=== PATIENT | female | born 1990 | race Asian ===

== ENCOUNTER 2017-03-17 08:52 | Inpatient (IN) | payer MEDICARE, MEDICAID ==
[~2017-03-17] VITALS: Ht 167.6 cm; Wt 97.1 kg
[2017-03-17 08:52] VITALS: BP 132/112
--- NOTE | 2017-03-17 09:21 | Emergency Room Report ---
History of Present Illness General Chief Complaint: General Complaint Source: Family Member Present Illness HPI Patient has advanced autism including bipolar disorder Patient had recently added medication And this morning mom describes was found to be likely seizure activity with postictal state Patient herself is not verbal with us However is awake and alert family reports that this time appears to be back to baseline mental status No reports of vomiting No reports of rash No reports of fever Patient had a shaking episode and has description of postictal state father was rubbing her arms and tried to give her oxygen Patient did become arousable Allergies: Coded Allergies: No Known Allergies (Unverified , 03/17/17) Patient History Past Medical History: see triage record Pertinent Family History: none Reviewed Nursing Documentation: PMH: Agreed, PSxH: Agreed Review of Systems All Other Systems: limited - Other than the ones mentioned in the history of present illness all others are reviewed however they do stay limited due to the patient's mental status Physical Exam Vital Signs Date Time Temp Pulse Resp B/P (MAP) Pulse Ox O2 Delivery O2 Flow Rate FiO2 03/17/17 08:39 97.9 97 18 140/98 98 Room Air Sp02 EP Interpretation: reviewed, normal General Appearance: well appearing, no apparent distress Head: normocephalic, atraumatic Eyes: bilateral eye PERRL, bilateral eye EOMI ENT: hearing grossly normal, normal pharynx, TMs + canals normal, uvula midline Neck: full range of motion, supple, no meningismus, no bony tend Respiratory: lungs clear, normal breath sounds, no rhonchi, no respiratory distress, no retraction, no accessory muscle use Cardiovascular #1: normal peripheral pulses, regular rate, rhythm, no edema, no gallop, no JVD, no murmur Gastrointestinal: normal bowel sounds, non tender, soft, no mass, no organomegaly, non-distended, no guarding, no hernia, no pulsatile mass, no rebound Genitourinary: no CVA tenderness Musculoskeletal: normal inspection Neurologic: oriented x3, responsive, salicylic acid blender III-XII nml as tested, motor strength/ tone normal, sensory intact Psychiatric: mood/affect normal Skin: normal color, no rash, warm/dry, palpation normal Lymphatic: normal inspection, no adenopathy Medical Decision Making Diagnostic Impression: Primary Impression: Hyponatremia Additional Impression: Seizure ER Course Multiple differentials considered Patient has complex requiring blood work and imaging Consideration for reaction to new medication is also made The patient's sodium is low raising the concern of seizures caused by hyponatremia Patient further hydrated with normal saline CT imaging does not show any acute pathology Given the patient's new onset and comorbidities patient admitted for further care Labs Test 03/17/17 09:40 03/17/17 10:45 03/18/17 07:25 White Blood Count 4.2 K/UL (4.8-10.8) 3.9 K/UL (4.8-10.8) Red Blood Count 3.73 M/UL (4.20-5.40) 3.61 M/UL (4.20-5.40) Hemoglobin 12.3 G/DL (12.0-16.0) 11.9 G/DL (12.0-16.0) Hematocrit 36.1 % (37.0-47.0) 35.6 % (37.0-47.0) Mean Corpuscular Volume 97 FL (80-99) 99 FL (80-99) Mean Corpuscular Hemoglobin 32.9 PG (27.0-31.0) 33.0 PG (27.0-31.0) Mean Corpuscular Hemoglobin Concent 34.0 G/DL (32.0-36.0) 33.5 G/DL (32.0-36.0) Red Cell Distribution Width 10.8 % (11.6-14.8) 11.4 % (11.6-14.8) Platelet Count 444 K/UL (150-450) 474 K/UL (150-450) Mean Platelet Volume 4.6 FL (6.5-10.1) 4.4 FL (6.5-10.1) Neutrophils (%) (Auto) 67.2 % (45.0-75.0) 60.2 % (45.0-75.0) Lymphocytes (%) (Auto) 22.2 % (20.0-45.0) 29.9 % (20.0-45.0) Monocytes (%) (Auto) 9.5 % (1.0-10.0) 8.7 % (1.0-10.0) Eosinophils (%) (Auto) 0.5 % (0.0-3.0) 0.6 % (0.0-3.0) Basophils (%) (Auto) 0.6 % (0.0-2.0) 0.7 % (0.0-2.0) Sodium Level 129 MMOL/L (136-145) 135 MMOL/L (136-145) Potassium Level 4.1 MMOL/L (3.5-5.1) 4.3 MMOL/L (3.5-5.1) Chloride Level 94 MMOL/L (98-107) 101 MMOL/L (98-107) Carbon Dioxide Level 30 MMOL/L (21-32) 29 MMOL/L (21-32) Anion Gap 6 mmol/L (5-15) 5 mmol/L (5-15) Blood Urea Nitrogen 7 mg/dL (7-18) 8 mg/dL (7-18) Creatinine 0.5 MG/DL (0.55-1.30) 0.4 MG/DL (0.55-1.30) Estimat Glomerular Filtration Rate > 60 mL/min (>60) > 60 mL/min (>60) Glucose Level 101 MG/DL (74-106) 86 MG/DL (74-106) Calcium Level 8.9 MG/DL (8.5-10.1) 9.0 MG/DL (8.5-10.1) Total Bilirubin 0.2 MG/DL (0.2-1.0) Aspartate Amino Transf (AST/SGOT) 17 U/L (15-37) Alanine Aminotransferase (ALT/SGPT) 21 U/L (12-78) Alkaline Phosphatase 97 U/L (46-116) Total Protein 7.4 G/DL (6.4-8.2) Albumin 3.8 G/DL (3.4-5.0) Globulin 3.6 g/dL Albumin/Globulin Ratio 1.1 (1.0-2.7) Lipase 97 U/L (73-393) Carbamazepine (Tegretol) Level 11.3 ug/mL (4.0-12.0) Urine Color Pale yellow Urine Appearance Clear Urine pH 8 (4.5-8.0) Urine Specific [place] 1.010 (1.005-1.035) Urine Protein Negative (NEGATIVE) Urine Glucose (UA) Negative (NEGATIVE) Urine Ketones Negative (NEGATIVE) Urine Occult Blood Negative (NEGATIVE) Urine Nitrite Negative (NEGATIVE) Urine Bilirubin Negative (NEGATIVE) Urine Urobilinogen Normal MG/DL (0.0-1.0) Urine Leukocyte Esterase Negative (NEGATIVE) Urine HCG, Qualitative Negative Vitamin B12 Level 527 PG/ML (193-986) Rhythm Strip Diag. Results EP Interpretation: yes Rate: 89 Rhythm: NSR, no PVC's, no ectopy CT/MRI/US Diagnostic Results CT/MRI/US Diagnostic Results : Impression CT head no acute disease Last Vital Signs Date Time Temp Pulse Resp B/P (MAP) Pulse Ox O2 Delivery O2 Flow Rate FiO2 03/17/17 08:39 97.9 97 18 140/98 98 Room Air Status: improved Disposition: ADMITTED INPATIENT Condition: Serious MANI ISSA D.O. Mar 17, 2017 09:21
--- NOTE | 2017-03-17 10:02 | Diagnostic Imaging Report ---
Indication: Seizures, altered mental status Technique: Continuous helical CT scanning of the head was performed without intravenous contrast material. Axial and coronal 5 mm sections were generated. Radiation dose was minimized using automated exposure control Dose: Total Dose Length Product - DLP 1921.[address] Dose Index - CTDIvol(s) 70.38,70.38 mGy. Comparison: Findings: The ventricular system is normal in size and configuration. There is no shift of midline structures. No abnormal extra-axial fluid collections are noted. There is no evidence of intracerebral bleeding. No other abnormal high or low density areas are noted within the brain. Intact calvarium. Visualized orbits and sinuses are unremarkable Impression: Normal CT scan of the head without contrast material. The CT scanner at [facility] is accredited by the [employer] and the scans are performed using protocols designed to limit radiation exposure to as low as reasonably achievable to attain images of sufficient resolution adequate for diagnostic evaluation.
[2017-03-17 10:05] LABS: BASOPHILS % (AUTO) 0.6 % (0.0-2.0); EOSINOPHILS % (AUTO) 0.5 % (0.0-3.0); HEMATOCRIT 36.1 % (37.0-47.0); HEMOGLOBIN 12.3 G/DL (12.0-16.0); LYMPHOCYTES % (AUTO) 22.2 % (20.0-45.0); MEAN CORPUSCULAR VOLUME 97 FL (80-99); MONOCYTES % (AUTO) 9.5 % (1.0-10.0); NEUTROPHILS % (AUTO) 67.2 % (45.0-75.0); PLATELET COUNT 444 K/UL (150-450); RED BLOOD COUNT 3.73 M/UL (4.20-5.40); RED CELL DISTRIBUTION WIDTH 10.8 % (11.6-14.8); WHITE BLOOD COUNT 4.2 K/UL (4.8-10.8)
[2017-03-17 10:09] VITALS: BP 119/76
[2017-03-17 10:11] LABS: ANION GAP 6 mmol/L (5-15); BLOOD UREA NITROGEN 7 mg/dL (7-18); CALCIUM 8.9 MG/DL (8.5-10.1); CARBON DIOXIDE 30 MMOL/L (21-32); CHLORIDE 94 MMOL/L (98-107); CREATININE 0.5 MG/DL (0.55-1.30); POTASSIUM 4.1 MMOL/L (3.5-5.1); SODIUM 129 MMOL/L (136-145)
[2017-03-17 10:16] LABS: ALANINE AMINOTRANSFERASE 21 U/L (12-78); ALBUMIN 3.8 G/DL (3.4-5.0); ALBUMIN/GLOBULIN RATIO 1.1 (1.0-2.7); ALKALINE PHOSPHATASE 97 U/L (46-116); ASPARTATE AMINO TRANSFERASE 17 U/L (15-37); BILIRUBIN,TOTAL 0.2 MG/DL (0.2-1.0)
[2017-03-17] MEDS ORDERED: TEGRETOL100 MG/5 M PO (11:00)
[2017-03-17] MEDS ORDERED: CLOZARIL25 MG ORAL (11:00)
[2017-03-17] MEDS ORDERED: LAMOTRIGINE5 MG PO (11:00)
[2017-03-17] MEDS ORDERED: VENLAFAXINE HCL25 MG ORAL (11:00)
[2017-03-17] MEDS ORDERED: ABILIFY2 MG ORAL (11:00)
[2017-03-17] MEDS ORDERED: BENZTROPINE MESY1 MG PO (11:00)
[2017-03-17 11:04] LABS: APPEARANCE,URINE CLEAR; BILIRUBIN, URINE NEGATIVE (NEGATIVE); COLOR,URINE PALE YELLOW; GLUCOSE, URINE (UA) NEGATIVE (NEGATIVE); KETONES,URINE NEGATIVE (NEGATIVE); LEUKOCYTE ESTERASE ,URINE NEGATIVE (NEGATIVE); NITRITE,URINE NEGATIVE (NEGATIVE); PH,URINE 8 (4.5-8.0); PROTEIN,URINE NEGATIVE (NEGATIVE); UROBILINOGEN,URINE NORMAL MG/DL (0.0-1.0)
[2017-03-17] MEDS ORDERED: LORazepam Inj 2mg/ml 1ml IV ONE (11:15)
[2017-03-17 13:05] VITALS: BP 143/94
[2017-03-17] MEDS ORDERED: LORazepam Inj 2mg/ml 1ml IV PRN (13:15)
[2017-03-17 16:00] VITALS: BP 136/87
--- NOTE | 2017-03-17 16:32 | History & Physical ---
History and Physical History & Physicial 27 year old patient that has advanced autism including bipolar disorder This morning mother describes she was found to be likely seizure activity with postictal state Patient herself is not able to give any history Patient is awake and alert and apparently back to baseline No reports of vomiting No reports of rash No reports of fever Allergies: No Known Allergies (Unverified , 03/17/17) Past Medical History: autism Pertinent Family History: none Reviewed of systems: none Physical WDWN NAD clear breath sounds bilaterally without rhonchi or wheeze [id number] without MRG NABS nontender no HSM no CCE nonfocal Laboratory Tests Test 03/17/17 09:40 03/17/17 10:45 White Blood Count 4.2 K/UL (4.8-10.8) L Red Blood Count 3.73 M/UL (4.20-5.40) L Hemoglobin 12.3 G/DL (12.0-16.0) Hematocrit 36.1 % (37.0-47.0) L Mean Corpuscular Volume 97 FL (80-99) Mean Corpuscular Hemoglobin 32.9 PG (27.0-31.0) H Mean Corpuscular Hemoglobin Concent 34.0 G/DL (32.0-36.0) Red Cell Distribution Width 10.8 % (11.6-14.8) L Platelet Count 444 K/UL (150-450) Mean Platelet Volume 4.6 FL (6.5-10.1) L Neutrophils (%) (Auto) 67.2 % (45.0-75.0) Lymphocytes (%) (Auto) 22.2 % (20.0-45.0) Monocytes (%) (Auto) 9.5 % (1.0-10.0) Eosinophils (%) (Auto) 0.5 % (0.0-3.0) Basophils (%) (Auto) 0.6 % (0.0-2.0) Sodium Level 129 MMOL/L (136-145) L Potassium Level 4.1 MMOL/L (3.5-5.1) Chloride Level 94 MMOL/L (98-107) L Carbon Dioxide Level 30 MMOL/L (21-32) Anion Gap 6 mmol/L (5-15) Blood Urea Nitrogen 7 mg/dL (7-18) Creatinine 0.5 MG/DL (0.55-1.30) L Estimat Glomerular Filtration Rate > 60 mL/min (>60) Glucose Level 101 MG/DL (74-106) Calcium Level 8.9 MG/DL (8.5-10.1) Total Bilirubin 0.2 MG/DL (0.2-1.0) Aspartate Amino Transf (AST/SGOT) 17 U/L (15-37) Alanine Aminotransferase (ALT/SGPT) 21 U/L (12-78) Alkaline Phosphatase 97 U/L (46-116) Total Protein 7.4 G/DL (6.4-8.2) Albumin 3.8 G/DL (3.4-5.0) Globulin 3.6 g/dL Albumin/Globulin Ratio 1.1 (1.0-2.7) Lipase 97 U/L (73-393) Urine Color Pale yellow Urine Appearance Clear Urine pH 8 (4.5-8.0) Urine Specific [place] 1.010 (1.005-1.035) Urine Protein Negative (NEGATIVE) Urine Glucose (UA) Negative (NEGATIVE) Urine Ketones Negative (NEGATIVE) Urine Occult Blood Negative (NEGATIVE) Urine Nitrite Negative (NEGATIVE) Urine Bilirubin Negative (NEGATIVE) Urine Urobilinogen Normal MG/DL (0.0-1.0) Urine Leukocyte Esterase Negative (NEGATIVE) Urine HCG, Qualitative Negative IMPRESSION seizure acute encephalopathy autism hyponatremia PLAN Iv hydration resume meds seizure precautions monitor sodium impression, plan, and exam edited and reviewed in detail care discussed with CR GARCIA Mar 17, 2017 16:32
--- NOTE | 2017-03-17 17:35 | Neurology Progress Note ---
Objective Physical Exam Last Vital Signs Date Time Temp Pulse Resp B/P (MAP) Pulse Ox O2 Delivery O2 Flow Rate FiO2 03/17/17 16:00 98.0 95 18 136/87 100 Room Air Laboratory Tests Test 03/17/17 09:40 03/17/17 10:45 White Blood Count 4.2 K/UL (4.8-10.8) L Red Blood Count 3.73 M/UL (4.20-5.40) L Hemoglobin 12.3 G/DL (12.0-16.0) Hematocrit 36.1 % (37.0-47.0) L Mean Corpuscular Volume 97 FL (80-99) Mean Corpuscular Hemoglobin 32.9 PG (27.0-31.0) H Mean Corpuscular Hemoglobin Concent 34.0 G/DL (32.0-36.0) Red Cell Distribution Width 10.8 % (11.6-14.8) L Platelet Count 444 K/UL (150-450) Mean Platelet Volume 4.6 FL (6.5-10.1) L Neutrophils (%) (Auto) 67.2 % (45.0-75.0) Lymphocytes (%) (Auto) 22.2 % (20.0-45.0) Monocytes (%) (Auto) 9.5 % (1.0-10.0) Eosinophils (%) (Auto) 0.5 % (0.0-3.0) Basophils (%) (Auto) 0.6 % (0.0-2.0) Sodium Level 129 MMOL/L (136-145) L Potassium Level 4.1 MMOL/L (3.5-5.1) Chloride Level 94 MMOL/L (98-107) L Carbon Dioxide Level 30 MMOL/L (21-32) Anion Gap 6 mmol/L (5-15) Blood Urea Nitrogen 7 mg/dL (7-18) Creatinine 0.5 MG/DL (0.55-1.30) L Estimat Glomerular Filtration Rate > 60 mL/min (>60) Glucose Level 101 MG/DL (74-106) Calcium Level 8.9 MG/DL (8.5-10.1) Total Bilirubin 0.2 MG/DL (0.2-1.0) Aspartate Amino Transf (AST/SGOT) 17 U/L (15-37) Alanine Aminotransferase (ALT/SGPT) 21 U/L (12-78) Alkaline Phosphatase 97 U/L (46-116) Total Protein 7.4 G/DL (6.4-8.2) Albumin 3.8 G/DL (3.4-5.0) Globulin 3.6 g/dL Albumin/Globulin Ratio 1.1 (1.0-2.7) Lipase 97 U/L (73-393) Urine Color Pale yellow Urine Appearance Clear Urine pH 8 (4.5-8.0) Urine Specific [place] 1.010 (1.005-1.035) Urine Protein Negative (NEGATIVE) Urine Glucose (UA) Negative (NEGATIVE) Urine Ketones Negative (NEGATIVE) Urine Occult Blood Negative (NEGATIVE) Urine Nitrite Negative (NEGATIVE) Urine Bilirubin Negative (NEGATIVE) Urine Urobilinogen Normal MG/DL (0.0-1.0) Urine Leukocyte Esterase Negative (NEGATIVE) Urine HCG, Qualitative Negative Impression/Recommendations Problems: (1) Epileptic seizure, generalized (2) hyponatremia, 2/2 tegretol use Status: stable Recommendations # [id number] eeg level lamictal/tegretol clozaryl 25mg bid JAY MUNOZ Mar 17, 2017 17:35
[2017-03-17] MEDS ORDERED: ARIPiprazole 2mg tab ORAL SCH (18:00)
[2017-03-17] MEDS: Benztropine 1mg tab ORAL SCH (18:20)
[2017-03-17] MEDS: carBAMazepine 200mg tab ORAL SCH (18:20)
[2017-03-17] MEDS: ARIPiprazole 10mg tab ORAL SCH (18:20)
[2017-03-17 20:00] VITALS: BP 111/75
[2017-03-17] MEDS: Heparin 5000 units/ml inj SUBQ SCH (20:46)
[2017-03-18] VITALS: BP 106/50
--- NOTE | 2017-03-18 02:30 | Consultation ---
DATE OF CONSULTATION: 03/17/2017 NEUROLOGICAL CONSULTATION CONSULTING PHYSICIAN: Pepe Jaime M.D. REQUESTING PHYSICIAN: Polo Cortes M.D. HISTORY OF PRESENT ILLNESS: The patient is a 27-year-old female suffering from a lifelong bipolar disorder and autism, maintained on multiple medications, who was in her usual state of health this morning when after receiving all her medications including recently introduced Clozaril, she developed what seems generalized clonic-tonic seizure episode with a violent head, upper back, arm shaking, eyes "rotating up and down." This lasted few minutes. There was no tongue biting. No urine or bowel incontinence. She started to wake up. She was brought to emergency room. Her vital signs were stable. Blood pressure 140/98, temperature 97.9. She was not in acute distress. Her laboratory studies included CBC panel with WBC of 5.2. Chemistry panel with sodium 129, creatinine 0.5. Urinalysis was negative. She had a stat CT scan of the brain obtained. This was normal study with no evidence of intracranial abnormalities. No midline shift. Since admission until present, there was no further paroxysmal activities noted. The patient's family, mother and father at bedside and was able to provide with history. In addition, I spoke on the phone with the patient's psychiatrist, Dr. Hardy. The patient has been maintained for many years on multiple treatments including Effexor 25 mg t.i.d., Lamictal, Tegretol 100 mg, benztropine mesylate, and Abilify 10 mg daily. Apparently, the patient was not tolerating well Abilify developing a side effect in the form of generalized dyskinesia. It was felt that the patient needs to have slow tapering down, instead the patient started on Clozaril a week ago starting with 25 mg twice a day, then this was increased to 25 mg a.m. and 50 mg at bedtime and this morning prior to having seizure, the patient was increased dose to 50 mg twice a day. The patient reportedly has a long history of hyponatremia, which was probably attributed to use of Tegretol. PAST MEDICAL HISTORY: The patient has no major medical problems except psychiatric issue. Family recalled that she had on two occasions episodes when she almost fainted and attributed to medications. There were no seizure activities. FAMILY HISTORY: Noncontributory. No family history with seizure activities. SOCIAL HISTORY: The patient lives with her parents who are caregivers. There is no alcohol or drug abuse. She is ambulatory. She is practically nonverbal, attempts 1 or 2 words pronounced, when asking something she would point it out with the finger what does she like to do. REVIEW OF SYMPTOMS: Unable to obtain due the patient's status, but mother feels that she is about her baseline. PHYSICAL EXAMINATION: GENERAL: This is a well-developed, obese female, sitting in a chair, mumbling. VITAL SIGNS: Now are stable. Blood pressure 136/87, temperature 98.0. HEENT: Head is normocephalic. No evidence of trauma. Eyes, ears, and throat are clear. No evidence of tongue biting. NECK: Supple. No meningeal signs. MUSCULOSKELETAL: Unremarkable. There are no deformities. Peripheral pulses 1+ and symmetric. MENTAL STATUS: The patient is alert. She has poor eye contact, but she was able to follow few simple commands. CRANIAL NERVE II: Pupils both responding to light and accommodation. Extraocular movements intact. No nystagmus. CRANIAL NERVE V: Normal corneal responses. CRANIAL NERVE VII: No facial asymmetry. CRANIAL NERVE VIII: Grossly normal hearing. CRANIAL NERVES IX THROUGH XII: Tongue is in midline. Symmetric palate elevation. MOTOR EXAMINATION: Able to lift arms and legs against the gravity. No involuntary movement. Deep tendon reflexes 1+ symmetric with downgoing toes on both sides. SENSORY EXAMINATION: Normal to pinprick and light touch. GAIT: Stable. IMPRESSION: 1. Single generalized clonic-tonic seizure episode, very likely representing drug toxicity. 2. Autism/bipolar disorder. 3. Polypharmacy. 4. Hyponatremia, probably drug induced (Tegretol). RECOMMENDATION: I will maintain Tegretol and Lamictal at the high therapeutic range. We check blood levels to monitor doses. The patient will continue with her current treatment, but reduce Clozaril down to 25 mg b.i.d. This will be very slowly titrated as outpatient. The patient to be observed for paroxysmal events. Thank you for allowing me to see this interesting patient in neurological consultation. Pepe Jaime M.D. DR: Mackenzie JOB#: [id number] CC:
[2017-03-18 04:00] VITALS: BP 103/67
[2017-03-18 08:16] LABS: BASOPHILS % (AUTO) 0.7 % (0.0-2.0); EOSINOPHILS % (AUTO) 0.6 % (0.0-3.0); HEMATOCRIT 35.6 % (37.0-47.0); HEMOGLOBIN 11.9 G/DL (12.0-16.0); LYMPHOCYTES % (AUTO) 29.9 % (20.0-45.0); MEAN CORPUSCULAR VOLUME 99 FL (80-99); MONOCYTES % (AUTO) 8.7 % (1.0-10.0); NEUTROPHILS % (AUTO) 60.2 % (45.0-75.0); PLATELET COUNT 474 K/UL (150-450); RED BLOOD COUNT 3.61 M/UL (4.20-5.40); RED CELL DISTRIBUTION WIDTH 11.4 % (11.6-14.8); WHITE BLOOD COUNT 3.9 K/UL (4.8-10.8)
[2017-03-18 08:23] VITALS: BP 144/83
--- NOTE | 2017-03-18 08:36 | General Progress Note ---
Assessment/Plan Assessment/Plan IMPRESSION seizure acute encephalopathy autism hyponatremia PLAN Iv hydration maintain meds seizure precautions EEG follow up labs and monitor sodium psych evaluation impression, plan, and exam edited and reviewed in detail care discussed with RN Subjective Allergies: Coded Allergies: No Known Allergies (Unverified , 03/17/17) Subjective neuro appreciated care reviewed psych called Objective Last 24 Hour Vital Signs Date Time Temp Pulse Resp B/P (MAP) Pulse Ox O2 Delivery O2 Flow Rate FiO2 03/18/17 08:23 97.4 89 18 144/83 97 Room Air 03/18/17 04:00 Room Air 03/18/17 04:00 97.0 81 21 103/67 96 03/18/17 00:00 96.8 81 21 106/50 95 03/18/17 00:00 Room Air 03/17/17 20:00 97.0 85 20 111/75 98 03/17/17 20:00 Room Air 03/17/17 16:00 98.0 95 18 136/87 100 Room Air 03/17/17 13:05 97.9 92 16 143/94 99 Room Air 03/17/17 12:44 97.9 97 21 119/76 100 Room Air 03/17/17 10:09 97.9 97 21 119/76 100 Room Air 03/17/17 08:52 100 20 Room Air 03/17/17 08:52 97.9 100 20 132/112 98 Room Air 03/17/17 08:39 97.9 97 18 140/98 98 Room Air Intake and Output 03/17/17 03/18/17 19:00 07:00 Intake Total 930 ml 1100 ml Balance 930 ml 1100 ml Intake Oral 530 ml IV Total 400 ml 1100 ml # Voids 2 2 Laboratory Tests 03/17/17 09:40: White Blood Count 4.2L, Red Blood Count 3.73L, Hemoglobin 12.3, Hematocrit 36.1L , Mean Corpuscular Volume 97, Mean Corpuscular Hemoglobin 32.9H, Mean Corpuscular Hemoglobin Concent 34.0, Red Cell Distribution Width 10.8L, Platelet Count 444, Mean Platelet Volume 4.6L, Neutrophils (%) (Auto) 67.2, Lymphocytes (%) (Auto) 22.2, Monocytes (%) (Auto) 9.5, Eosinophils (%) (Auto) 0.5, Basophils (%) (Auto) 0.6, Sodium Level 129L, Potassium Level 4.1, Chloride Level 94L, Carbon Dioxide Level 30, Anion Gap 6, Blood Urea Nitrogen 7, Creatinine 0.5L, Estimat Glomerular Filtration Rate > 60, Glucose Level 101, Calcium Level 8.9, Total Bilirubin 0.2, Aspartate Amino Transf (AST/SGOT) 17, Alanine Aminotransferase (ALT/SGPT) 21, Alkaline Phosphatase 97, Total Protein 7.4, Albumin 3.8, Globulin 3.6, Albumin/Globulin Ratio 1.1, Lipase 97, Carbamazepine (Tegretol) Level 11.3 03/17/17 10:45: Urine Color Pale yellow, Urine Appearance Clear, Urine pH 8, Urine Specific [place] 1.010, Urine Protein Negative, Urine Glucose (UA) Negative, Urine Ketones Negative, Urine Occult Blood Negative, Urine Nitrite Negative, Urine Bilirubin Negative, Urine Urobilinogen Normal, Urine Leukocyte Esterase Negative , Urine HCG, Qualitative Negative 03/18/17 07:25: White Blood Count 3.9L, Red Blood Count 3.61L, Hemoglobin 11.9L, Hematocrit 35.6L, Mean Corpuscular Volume 99, Mean Corpuscular Hemoglobin 33.0H, Mean Corpuscular Hemoglobin Concent 33.5, Red Cell Distribution Width 11.4L, Platelet Count 474H, Mean Platelet Volume 4.4L, Neutrophils (%) (Auto) 60.2, Lymphocytes (%) (Auto) 29.9, Monocytes (%) (Auto) 8.7, Eosinophils (%) (Auto) 0.6, Basophils (%) (Auto) 0.7, Sodium Level [Pending], Potassium Level [Pending] , Chloride Level [Pending], Carbon Dioxide Level [Pending], Blood Urea Nitrogen [Pending], Creatinine [Pending], Estimat Glomerular Filtration Rate [Pending], Glucose Level [Pending], Calcium Level [Pending], Vitamin B12 Level [Pending], Alpha-Tocopherol Level [Pending] Height (Feet): 5 Height (Inches): 6.00 Weight (Pounds): 214 Objective WDWN NAD clear breath sounds bilaterally without rhonchi or wheeze [id number] without MRG NABS nontender no HSM no CCE nonfocal stable no distress CR RUIZ Mar 18, 2017 08:36
[2017-03-18 08:44] LABS: ANION GAP 5 mmol/L (5-15); BLOOD UREA NITROGEN 8 mg/dL (7-18); CARBON DIOXIDE 29 MMOL/L (21-32); CHLORIDE 101 MMOL/L (98-107); CREATININE 0.4 MG/DL (0.55-1.30); POTASSIUM 4.3 MMOL/L (3.5-5.1); SODIUM 135 MMOL/L (136-145)
[2017-03-18] MEDS: ARIPiprazole 10mg tab ORAL SCH ×2 (08:48→17:43)
[2017-03-18] MEDS: Benztropine 1mg tab ORAL SCH ×2 (08:49→16:41)
[2017-03-18] MEDS: carBAMazepine 200mg tab ORAL SCH ×3 (08:50→17:44)
[2017-03-18] MEDS: Heparin 5000 units/ml inj SUBQ SCH ×2 (08:53→20:41)
[2017-03-18] MEDS ORDERED: Venlafaxine 25mg tab ORAL SCH (09:00)
[2017-03-18] MEDS ORDERED: ARIPiprazole 2mg tab ORAL SCH (09:00)
[2017-03-18] MEDS: Venlafaxine XR 150mg cap ORAL SCH (11:36)
[2017-03-18 12:42] VITALS: BP 137/75
[2017-03-18 16:00] VITALS: BP 135/86
[2017-03-18 20:00] VITALS: BP 127/81
[2017-03-19] VITALS: BP 123/69
[2017-03-19 04:00] VITALS: BP 131/94
[2017-03-19 08:00] VITALS: BP 136/53
--- NOTE | 2017-03-19 08:53 | General Progress Note ---
Assessment/Plan Assessment/Plan IMPRESSION seizure acute encephalopathy autism hyponatremia PLAN Iv hydration- may dc today maintain meds seizure precautions EEG pending follow up labs and monitor for change psych evaluation and recs dc once cleared by neuro impression, plan, and exam edited and reviewed in detail care discussed with RN Subjective ROS Limited/Unobtainable: Yes Allergies: Coded Allergies: No Known Allergies (Unverified , 03/17/17) Subjective neuro appreciated care reviewed psych called no acute changes Objective Last 24 Hour Vital Signs Date Time Temp Pulse Resp B/P (MAP) Pulse Ox O2 Delivery O2 Flow Rate FiO2 03/19/17 08:00 96.4 92 18 136/53 95 Room Air 03/19/17 04:00 97.9 85 22 131/94 97 03/19/17 00:00 98.6 85 21 123/69 96 03/18/17 20:00 99.1 104 20 127/81 95 03/18/17 16:00 97.4 101 20 135/86 98 03/18/17 12:42 97.4 91 18 137/75 99 Room Air Intake and Output 03/18/17 03/19/17 19:00 07:00 Intake Total 3190 ml 1580 ml Balance 3190 ml 1580 ml Intake Oral 2090 ml 480 ml IV Total 1100 ml 1100 ml # Voids 8 1 # Bowel Movements 2 Height (Feet): 5 Height (Inches): 6.00 Weight (Pounds): 214 Objective WDWN NAD clear breath sounds bilaterally without rhonchi or wheeze [id number] without MRG NABS nontender no HSM no CCE nonfocal stable no distress CR RUIZ Mar 19, 2017 08:53
[2017-03-19] MEDS: ARIPiprazole 10mg tab ORAL SCH (09:38)
[2017-03-19] MEDS: Benztropine 1mg tab ORAL SCH (09:38)
[2017-03-19] MEDS: Venlafaxine XR 150mg cap ORAL SCH (09:39)
[2017-03-19] MEDS: carBAMazepine 200mg tab ORAL SCH (09:40)
--- NOTE | 2017-03-19 11:17 | Neurology Progress Note ---
Interim History Interim History ROS Limited/Unobtainable: Yes Complaints: none Events: no sz "at baseline" per mom Objective Physical Exam Last Vital Signs Date Time Temp Pulse Resp B/P (MAP) Pulse Ox O2 Delivery O2 Flow Rate FiO2 03/19/17 08:00 96.4 92 18 136/53 95 Room Air General: well developed, no acute distress Head: normocophalic, atraumatic Neck: no rigidity EENT: benign Neurologic Exam Mental Status: awake, other - nonverbal Speech: other Language: other Cranial Nerve II: fundus normal, visual echeverria, no papilledema Cranial Nerves III, IV, : PERRLA, EOMI, pupils Cranial Nerve V: normal facial sensations, temporales function normal, masseters function normal, pterygoids function normal Cranial Nerve VII: no facial asymmetry, normal facial expressions Cranial Nerve VIII: normal hearing, no nystagmus Cranial Nerve IX: normal palate elevation, gag response Cranial Nerve X: no voice hoarseness Cranial Nerve XI: SCM symmetric, trapezii function normal Cranial Nerve XII: tongue midline, no tongue atrophy/fasciculations Motor System: normal muscle tone Sensory: normal pinprick Coordination: other Deep Tendon Reflexes: 1+ bicep (L), 1+ bicep (R), 1+ tricep (L), 1+ tricep (R) , 1+ brachioradialis (L), 1+ brachioradialis (R), 1+ knee (L), 1+ knee (R), 1+ ankle (L), 1+ ankle (R) Reflexes: mute plantar (L), mute plantar (R) Stance: normal Gait: stable, normal regular, heel + toe gait Impression/Recommendations Problems: (1) Epileptic seizure, generalized (2) hyponatremia, 2/2 tegretol use Status: stable Recommendations # [id number] eeg no sz noted level lamictal/tegretol clozaryl 25mg bid neuro stable JAY MUNOZ Mar 19, 2017 11:17
[2017-03-19 11:57] VITALS: BP 138/86
--- NOTE | 2017-03-19 16:15 | Electroencephalogram ---
DATE OF PROCEDURE: 03/18/2017 ELECTROENCEPHALOGRAPHY REPORT REQUESTING PHYSICIAN: Polo Cortes M.D. HISTORY: The patient is a 27-year-old female with autism and bipolar disorder presented with generalized seizure episode. EEG was requested to assess presence of ongoing seizure activities. TECHNIQUE: EEG was done using 18 electrodes placed scalp to scalp, scalp to ear montages according to 10/20 [employer] System. The patient described as being awake or drowsy, but poorly cooperative, constantly moving creating significant amount of movement artifacts. In most wakeful portions of recording, background activity consists of medium voltage 7-8 cycles per second alpha activities with good response to physiological stimulation. Photic stimulation from 3 to 32 hertz 32 hertz was done, result no significant changes. Slight attenuation of background noted corresponding to sleep stages. No asymmetry from side to side. There was no spike or wave activities. IMPRESSION: Mildly abnormal electroencephalogram in presence of mild diffuse slowing. COMMENT: Absence of paroxysmal or epileptiform discharges does not rule out seizure disorder. Pepe Jaime M.D. DR: YOMI JOB#: [id number] CC:
--- NOTE | 2017-03-19 23:22 | Consultation ---
History of Present Illness General Date patient seen: Mar 17, 2017 Chief Complaint: Seizure Present Illness HPI 27-year-old female suffering from bipolar disorder and autism, on multiple medications, who after receiving all her medications including recently introduced Clozaril, she developed generalized clonic-tonic seizure episode. the pt was stable during the eval and not endorsing any manic or psychotic sxs. the pt s family requested clozaril and the med is not on formulary. the pt is not suicidal or homicidal. the pt was no verbal Allergies: Coded Allergies: No Known Allergies (Unverified , 03/17/17) Medication History Scheduled Aripiprazole* (Abilify*), 2 MG ORAL DAILY, (Reported) Clozapine* (Clozaril*), 25 MG ORAL EVERY 12 HOURS, (Reported) Venlafaxine Hcl* (Effexor*), 25 MG ORAL THREE TIMES A DAY, (Reported) Miscellaneous Medications Benztropine Mesylate* (Benztropine Mesylate*), 1 MG PO, (Reported) Carbamazepine (Tegretol), 100 MG PO, (Reported) Lamotrigine (Lamotrigine), 5 MG PO, (Reported) Patient History Limited by: medical condition History Provided By: Patient, Medical Record, PMD Healthcare decision maker Carolyn Ellis, Mother Resuscitation status Full Code Advanced Directive on File Past Medical/Surgical History Past Medical/Surgical History: (1) Epileptic seizure, generalized (2) hyponatremia, 2/2 tegretol use (3) Hyponatremia Review of Systems Psychiatric: Reports: prior hx, anxiety, depressed feelings, emotional problems Physical Exam General Appearance: no apparent distress, alert, confused Neurologic: alert, oriented x 3, responsive, depressed affect Last 24 Hour Vital Signs Date Time Temp Pulse Resp B/P (MAP) Pulse Ox O2 Delivery O2 Flow Rate FiO2 03/19/17 11:57 97.2 88 18 138/86 97 Room Air 03/19/17 08:00 96.4 92 18 136/53 95 Room Air 03/19/17 04:00 97.9 85 22 131/94 97 03/19/17 00:00 98.6 85 21 123/69 96 Intake and Output 03/18/17 03/19/17 19:00 07:00 Intake Total 3190 ml 1580 ml Balance 3190 ml 1580 ml Intake Oral 2090 ml 480 ml IV Total 1100 ml 1100 ml # Voids 8 1 # Bowel Movements 2 Height (Feet): 5 Height (Inches): 6.00 Weight (Pounds): 214 Assessment/Plan Status: not improved, unchanged Assessment/Plan bipolar autism seizure due to Liviaaril Pedro Oneil M.D. Mar 19, 2017 23:22
--- NOTE | 2017-03-20 20:45 | Progress Note ---
DATE: 03/18/2017 SUBJECTIVE: The patient is in bed, calm. The patient is minimally verbal. Has cognitive impairment. The patient is having no anxiety or agitation. MENTAL STATUS EXAMINATION: The patient is alert, however, is confused. Mood is neutral to anxious. Affect is constricted, congruent with mood. Thought process is concrete. Thought content, no suicidal or homicidal ideations. ASSESSMENT: 1. Cognitive impairment. 2. Bipolar disorder. 3. Autism. PLAN: Okay to take the patient's Clozaril from home, however, lower doses 25 mg b.i.d. Pedro Oneil M.D. DR: CA JOB#: [id number] CC:
--- NOTE | 2017-03-28 17:25 | Discharge Summary ---
Discharge Summary Hospital Course Date of Admission Mar 18, 2017 at 12:00 Date of Discharge Mar 19, 2017 at 13:12 Admitting Diagnosis hyponatremia, seizure HPI Ailin Ellis is a 27 year old female who was admitted on Mar 18, 2017 at 12: 00 for Hyponatremia/Seizure Hospital Course dc summary #[id number] Discharge Medications Continued Medications: Aripiprazole* (Abilify*) 2 Mg Tablet 2 MG ORAL DAILY, TAB Benztropine Mesylate* (Benztropine Mesylate*) 1 Mg Tablet 1 MG PO, TAB Carbamazepine (Tegretol) 100 Mg/5 Ml Oral.susp 100 MG PO, ML Clozapine* (Clozaril*) 25 Mg Tablet 25 MG ORAL EVERY 12 HOURS, TAB Lamotrigine (Lamotrigine) 5 Mg Tb.chw.dsp 5 MG PO, TAB Venlafaxine Hcl* (Effexor*) 25 Mg Tablet 25 MG ORAL THREE TIMES A DAY, TAB Discharge Condition Upon Discharge: stable Discharge Disposition Patient was discharged to Home with Home Health(06) Discharge Diagnoses: Discharge Instructions Discharge Instructions Special Instructions I have been assigned to complete a D/C Summary on this account. I was not involved in the patient management Alec Pham)Nedra NP Mar 28, 2017 17:25
--- NOTE | 2017-03-28 23:45 | Discharge Summary 2 SIG ---
DATE OF ADMISSION: 03/18/2017 DATE OF DISCHARGE: 03/19/2017 REASON FOR ADMISSION: 27-year-old female with history of advanced autism and bipolar disorder was brought to emergency room for evaluation. In the morning her mother noted what she described to be likely a seizure activity with postictal state. The patient by herself was unable to provide any history due to autism. Workup in the emergency room was essentially negative. Vital signs were stable. Sodium was low- 129. The patient admitted with diagnosis of seizure disorder, acute encephalopathy, hyponatremia, and autism. HOSPITAL COURSE: The patient was admitted and started on IV fluids with normal saline. Seizure precaution were maintained. Neurology evaluation was requested. Home medication were resumed Neurologist seen and evaluated the patient and stated that the patient had a single episode of generalized clonic-tonic seizure activities likely due to the drug toxicity. He recommended to maintain Tegretol and Lamictal at the high therapeutic range. Levels were checked. The patient need to be very slowly titrated as outpatient. The patient was observed for paroxysmal events. No further seizure activity while in the hospital. EEG revealed no evidence of seizure activity. Psychiatrist seen and evaluated the patient and stated that her seizure activity was due to Clozaril toxicity and recommended slow titration as an outpatient. Clozaril dose was decreased. Prior to discharge, sodium up to 135. Due to the rapid and unexpected improvement in patient's condition, the patient was discharged in one day. FINAL DIAGNOSES: 1. Single generalized clonic-tonic seizure episode, very likely representing drug toxicity (likely due to Clozaril). 2. Autism. 3. Bipolar disorder. 4. Acute encephalopathy. 5. Hyponatremia, probably drug-induced (Tegretol). DISCHARGE MEDICATIONS: See medication reconciliation list. DISCHARGE INSTRUCTIONS: The patient was discharged home with home health services. Followup with the primary care provider. Polo Cortes M.D. I have been assigned to dictate discharge summary on this account and I was not involved in the patient's management. Nedra Michael ([facility] NRainerPRainer DR: PADMA JOB#: [id number] CC: TRIPP
== END 2017-03-19 13:12 | disposition home health service (06) | DRG 100 ==
LOC: EDBD 08:52 → EMR 09:00 → 4E 11:38 → INTOOBSV 11:38 → EDBEDREQ 12:06 → OBSVTOIN 03-18 12:00
DX: G40.409 Other generalized epilepsy and epileptic syndromes, not intractable, without status epilepticus (principal); G93.40 Encephalopathy, unspecified; E87.1 Hypo-osmolality and hyponatremia; F84.0 Autistic disorder; T42.4X5A Adverse effect of benzodiazepines, initial encounter; F31.9 Bipolar disorder, unspecified; F79 Unspecified intellectual disabilities; G31.84 Mild cognitive impairment of uncertain or unknown etiology
CPT/HCPCS: 36415; 70450; 80048; 80053; 80156; 81003; 81025; 82607; 83690; 84446; 85025; 95819; 96360; 96361; 96372; 99285; G0378